=== PATIENT | female | born 1975 | race African-American/Black ===

== ENCOUNTER 2018-08-22 15:58 | Emergency (ER) | payer SELFPAY ==
[~2018-08-22] VITALS: Ht 162.6 cm; Wt 113.4 kg
[2018-08-22 16:05] VITALS: BP 116/77
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
[2018-08-22] MEDS ORDERED: ROBAXIN500 MG PO (17:33)
[2018-08-22] MEDS ORDERED: NAPROXEN500 M2 ORAL (17:33)
[2018-08-22 17:44] VITALS: BP 116/77
--- NOTE | 2018-08-22 17:45 | NUR ---
ED Nurse Note: Patient is being discharged from medical care. Awake, alert and oriented x4. After care instructions, were given. Patient verbalized understanding of After care instructions. All medical devices such as ID band were removed. Patient ambulated out with all personal belongings with steady gait.
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
== END 2018-08-22 17:45 | disposition home or self-care (01) ==
LOC: EMR 16:55
DX: S16.1XXA Strain of muscle, fascia and tendon at neck level, initial encounter (principal); V43.52XA Car driver injured in collision with other type car in traffic accident, initial encounter; Y92.410 Unspecified street and highway as the place of occurrence of the external cause
CPT/HCPCS: 72040; 99283

== ENCOUNTER 2019-02-13 18:34 | Emergency (ER) | payer MEDICAID ==
[~2019-02-13] VITALS: Ht 160 cm; Wt 106.6 kg
[~2019-02-13 18:34] MED LIST: NAPROXEN500 M2 ORAL; ROBAXIN500 MG PO
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
[2019-02-13 18:37] VITALS: BP 126/78
[2019-02-13] MEDS ORDERED: NKM (18:40)
--- NOTE | 2019-02-13 19:08 | NUR ---
ED Nurse Note: Report given to BRET Sánchez. X-ray tech at bedside.
--- NOTE | 2019-02-13 19:08 | NUR ---
ED Nurse Note: RECEIVED REPORT FROM RN ERIC AND ASSUMED CARE, PT VSS, RESP EVEN AND UNLABORED ON RA, WILL CONT MONITOR, PT ADVISED TO NOTIFY STAFF IF NEEDED ASSIST.
--- NOTE | 2019-02-13 19:33 | Diagnostic Imaging Report ---
EXAM: XR Left Shoulder Complete, 2 or More Views CLINICAL HISTORY: PAIN TECHNIQUE: Two or more views of the left shoulder. COMPARISON: No relevant prior studies available. FINDINGS: Bones/joints: Unremarkable. No acute fracture. No dislocation. Soft tissues: Unremarkable. IMPRESSION: Normal left shoulder x-rays.
[2019-02-13] MEDS ORDERED: IBUPROFEN600 MG ORAL (19:47)
[2019-02-13] MEDS ORDERED: ROBAXIN-750750 MG PO (19:47)
--- NOTE | 2019-02-13 19:53 | NUR ---
ED Nurse Note: PT CLEARED TO BE D/C PER ERMD, PT DISCHARGE AND AFTERCARE INSTRUCTION PROVIDED W/ PRESCRIPTION, PT EDUCATION DONE VIA DISCUSSION AND HANDOUT, PT ADVISED TO FOLLOW UP WITH PCP OR RETURN TO ED IF CHANGES IN CONDITION, PT VERBALIZED UNDERSTANDING AND AGREES WITH PLAN, VSS, AMBULATORY W/ STEADY GAIT, LEFT W/ ALL BELONGINGS.
[2019-02-13 19:54] VITALS: BP 121/77
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
== END 2019-02-13 19:53 | disposition home or self-care (01) ==
LOC: EMR 18:47
DX: M25.512 Pain in left shoulder (principal); T14.8XXA Other injury of unspecified body region, initial encounter; V43.52XA Car driver injured in collision with other type car in traffic accident, initial encounter; Y93.9 Activity, unspecified; Y92.410 Unspecified street and highway as the place of occurrence of the external cause
CPT/HCPCS: 99283